=== PATIENT | female | born 1985 | race Caucasian/White ===

== ENCOUNTER 2024-05-08 12:36 | Emergency (ER) | payer MEDICAID, SELFPAY ==
[2024-05-08] VITALS (15 sets, daily range): BP systolic 110–141; BP diastolic 74–95; PULSE 97–116; RESP 18; TEMP 36.6; O2SAT 95–98; BMI 25.8
--- NOTE | 2024-05-08 12:53 | ED.ALCOHOL ---
HPI - Alcohol General Time Seen by Provider: 12:53 Date Seen: 05/08/24 Chief Complaint: Alcohol/Intoxication Stated Complaint: alcohol withdrawal Time Seen by Provider: 05/08/24 12:52 Source: patient and RN notes reviewed Mode of arrival: ambulatory Limitations: no limitations History of Present Illness HPI narrative: This 39-year-old female is brought in the ER for alcohol withdrawal, she was brought in by a to people from the [facility]. She is interested in detox, has developed alcohol withdrawal seizures. She was reportedly recently hospitalized within the last 2 weeks at [place] [id number] in [place] for withdrawal, does not believe she had seizures there but does not remember much. She has had seizures on her own when she has tried to detox from alcohol at home. Yesterday she had abdominal pain, vomiting of bilious material, started drinking again and improved. She states her withdrawal usually starts by 2-3 p.m. in the afternoon. She states she drank a lot last night, did have a shot of whiskey this morning. There reportedly is a plan in action for going to treatment after she has completed her alcohol withdrawal process. She is also use meth, no IV source of drug use ever per patient report. She notes she is living out of her car right now. She is tearful, remorseful. She does feel agitated and is starting to feel a little tremulous at this time. No nausea or abdominal pain at this time. MD complaint: alcohol withdrawal, alcohol dependence and desires rehab Chronic alcohol use: Yes Related Data Home Medications ?Medication ?Instructions ?Recorded ?Confirmed No Known Home Medications 05/08/24 05/08/24 Allergies Allergy/AdvReac Type Severity Reaction Status Date / Time No Known Drug Allergies Allergy Verified 05/08/24 12:48 Review of Systems Status of ROS Reports: 6 or more systems reviewed and unremarkable except as noted in History and below PFSH PFS Social History Smoking Status: Current some day smoker Do you use any of these nicotine containing products: None How often do you have a drink containing alcohol: never How often do you have six or more drinks on one occasion: Never AUDIT-C Alcohol total score: 0 Non-prescribed substance use: amphetamines/methamphetamines Exam Const: Vital Signs, click to edit/add: Vital Signs - 24 hr 05/08/24 12:40 05/08/24 13:01 05/08/24 13:16 Temperature 97.8 F Pulse Rate 102 H Pulse Rate [Right Pulse Oximeter] 116 H Respiratory Rate 18 Blood Pressure Blood Pressure [Ri ght Upper Arm] 141/95 H Pulse Oximetry 96 96 95 Oxygen Delivery Me thod Room Air 05/08/24 13:30 05/08/24 13:31 Temperature Pulse Rate 100 98 Pulse Rate [Right Pulse Oximeter] Respiratory Rate Blood Pressure 129/78 Blood Pressure [Ri ght Upper Arm] Pulse Oximetry 97 97 Oxygen Delivery Me thod Patient is overall alert, interactive, no apparent distress. Did become a little tearful at 1 point. Pupils are equal round, sclera clear, extraocular muscles intact. Symmetrical facial function. Or mucosa dry. Neck is supple, no masses, no adenopathy. CV slightly fast but regular, no murmur, normal S1-S2. Lungs are clear, good air entry, no wheezing or crackles. Abdomen is soft, nontender, nondistended, no organomegaly or masses. She has little mild tremor with intention in her hands. Otherwise strength is 5/5 symmetric, patient is ambulatory into the ED of her own accord. There is bruising in a small puncture site in her left upper forearm, bruising looks like it is healing in patient states that this was the site of the IV when she was in the hospital. Documenting provider has reviewed patient's vital signs: yes Course Course ED Course: Patient is agreeable to going to detox if she would be excepted. In the meantime, will start IV fluids, IV dose of 1 mg IV Ativan and she is very likely an early withdrawal based on her tachycardia, complaint of anxiety and tremors with the tremors noted to be quite minimal at this time. Will get underlying appropriate labs. Nursing staff is going to see if there is any possible detox facility for her. Otherwise, may have to talk to our hospitalist about watching this patient given her history of seizures. Reevaluation(s) Time of Reevaluation #1: 14:36 Reevaluation #1: [facility] detox has accepted patient. She will transfer with EMS. [facility] had no availability, [facility] had no beds at this time, thus, patient will go to [facility]. Vital Signs Vital signs: Initial Vital Signs Temperature 97.8 F 05/08/24 12:40 Temperature Source Temporal Artery Scan 05/08/24 12:40 Pulse Rate 116 H 05/08/24 12:40 Pulse Rhythm Regular 05/08/24 12:40 Respiratory Rate 18 05/08/24 12:40 Blood Pressure 141/95 H 05/08/24 12:40 Blood Pressure Mean 110 H 05/08/24 12:40 Pulse Oximetry 96 05/08/24 12:40 Oxygen Delivery Method Room Air 05/08/24 12:40 Vital Signs Temperature 97.8 F 05/08/24 12:40 Pulse Rate 116 H 05/08/24 12:40 Respiratory Rate 18 05/08/24 12:40 Blood Pressure 141/95 H 05/08/24 12:40 Pulse Oximetry 96 05/08/24 12:40 Oxygen Delivery Method Room Air 05/08/24 12:40 Temperature 97.8 F 05/08/24 12:40 Pulse Rate 99 05/08/24 14:45 Respiratory Rate 18 05/08/24 12:40 Blood Pressure 112/74 05/08/24 15:01 Pulse Oximetry 97 05/08/24 14:45 Oxygen Delivery Method Room Air 05/08/24 12:40 Medications Administered Medications: Discontinued Medications Generic Name Dose Route Start Last Admin Trade Name Freq PRN Reason Stop Dose Admin Sodium Chloride 1,000 mls @ 500 mls/hr 05/08/24 13:02 05/08/24 13:22 0.9 % Sodium Chloride 1000 Ml IV 05/08/24 15:01 500 mls/hr .Q2H CT Administration Lorazepam 1 - 2 mg 05/08/24 13:01 05/08/24 14:37 Lorazepam 2 Mg/Ml Inj IVP 1 mg Q1H PRN Administration Alcohol Withdrawal MDM - Alcohol Lab Data Attestation: I reviewed the patient's lab results. Labs: Lab Results 05/08/24 05/08/24 Range/Units 13:10 13:30 WBC 3.60 L (4.50-11.00) K/uL RBC 3.99 L (4.00-5.20) m/uL Hgb 13.2 (12.0-16.0) gm/dL Hct 38.8 (33.0-51.0) % MCV 97 (80-100) fL MCH 33 (26-34) pg MCHC 34 (32-36) gm/dL RDW Coeff of Jamie 14.5 (11.5-15.5) % Plt Count 195 (140-440) K/uL Neut % (Auto) 61.1 (42.0-72.0) % Lymph % (Auto) 32.8 (20-44) % [place] % (Auto) 4.7 (0.0-11.0) % Eos % (Auto) 0.6 (0.0-7.0) % Baso % (Auto) 0.8 (0.0-3.0) % Neut # (Auto) 2.20 (1.7-7.0) K/uL Lymph # (Auto) 1.20 (0.90-2.90) K/uL [place] # (Auto) 0.20 (0.00-0.90) K/UL Eos # (Auto) 0.00 (0.00-0.50) K/uL Baso # (Auto) 0.00 (0.00-0.30) K/uL Abs Immat Gran (auto) 0.00 (0.00-0.30) K/uL Imm/Tot Granulo (auto) 0.0 % Sodium 140 (135-149) mmol/L Potassium 3.8 (3.6-5.1) mmol/L Chloride 107 (96-114) mmol/L Carbon Dioxide 24 (20-32) mmol/L Anion Gap 9 (7-15) mEq/L BUN 11 (5-24) mg/dL Creatinine 0.6 (0.5-1.5) mg/dL Estimated Creat Clear 112.15 Estimated GFR 116 ml/min Glucose 82 (60-115) mg/dL Lactate 1.9 (0.5-1.9) mmol/L Calcium 8.6 (8.4-10.6) mg/dL Total Bilirubin 0.8 (0.1-1.5) mg/dL AST 37 H (12-35) U/L ALT 18 (4-35) U/L Alkaline Phosphatase 73 (40-150) U/L Total Protein 7.5 (6.0-8.3) g/dL Albumin 4.8 (3.3-5.0) g/dL Lipase 30 (23-300) U/L HCG, Qual Negative (Negative) Urine Opiates Screen Negative (Negative) Ur Oxycodone Screen Negative (Negative) Urine Methadone Screen Negative (Negative) Ur Barbiturates Screen Negative (Negative) U Tricyclic Antidepress Negative (Negative) Ur Phencyclidine Scrn Negative (Negative) Ur Amphetamines Screen POSITIVE A (Negative) U Methamphetamines Scrn POSITIVE A (Negative) U Benzodiazepines Scrn POSITIVE A (Negative) Urine Cocaine Screen Negative (Negative) U Marijuana (THC) Screen Negative (Negative) Ur Drug Screen Comment See Note Ethyl Alcohol 0.13 H (0.01-0.03) % Discharge Plan Discharge Clinical Impression: Alcohol withdrawal syndrome Qualifiers: Complication of substance-induced condition: uncomplicated Qualified Code(s): F10.930 - Alcohol use, unspecified with withdrawal, uncomplicated Patient Disposition: Xfer Other Condition: Stable Prescriptions: No Action No Known Home Medications Stand Alone Forms: [place] Info Instructions
[2024-05-08 13:18] LABS: Lactate* 1.9 mmol/L (0.5-1.9)
[2024-05-08 13:19] LABS: Basophils Percent Auto 0.8 % (0.0-3.0); Eosinophils Percent Auto 0.6 % (0.0-7.0); Hematocrit 38.8 % (33.0-51.0); Hemoglobin* 13.2 gm/dL (12.0-16.0); Lymphocytes Percent Auto 32.8 % (20-44); Mean Corpuscular HGB Conc 34 gm/dL (32-36); Mean Corpuscular Hemoglobin 33 pg (26-34); Mean Corpuscular Volume 97 fL (80-100); Monocytes Percent Auto 4.7 % (0.0-11.0); Neutrophils Percent Auto 61.1 % (42.0-72.0); Platelet Count* 195 K/uL (140-440); RDW Coefficient of Variation % 14.5 % (11.5-15.5); Red Blood Count 3.99 m/uL (4.00-5.20)
[2024-05-08] MEDS: LORazepam 2 MG/ML inj IVP ×2 (13:21→14:37)
[2024-05-08 13:22] LABS: Slide Review Reflex No
[2024-05-08] MEDS: 0.9 % SODIUM CHLORIDE 1000 ml 1,000 ML 500 ML IV (13:22)
[2024-05-08 13:33] LABS: Albumin* 4.8 g/dL (3.3-5.0); Chloride* 107 mmol/L (96-114); Potassium* 3.8 mmol/L (3.6-5.1); Sodium* 140 mmol/L (135-149)
[2024-05-08 13:35] LABS: Bilirubin Total* 0.8 mg/dL (0.1-1.5); Creatinine* 0.6 mg/dL (0.5-1.5); Est. Creatinine Clearance* 112.15; Estimated Glomerular Filt Rate 116 ml/min
[2024-05-08 13:36] LABS: Alanine Aminotransferase* 18 U/L (4-35); Alkaline Phosphatase* 73 U/L (40-150); Anion Gap 9 mEq/L (7-15); Aspartate Amino Transferase* 37 U/L (12-35); Blood Urea Nitrogen* 11 mg/dL (5-24); Calcium* 8.6 mg/dL (8.4-10.6); Carbon Dioxide* 24 mmol/L (20-32); Glucose* 82 mg/dL (60-115); Lipase* 30 U/L (23-300); Total Protein* 7.5 g/dL (6.0-8.3)
[2024-05-08 13:37] LABS: Ethanol* 0.13 % (0.01-0.03); HCG Qualitative Serum* Negative (Negative)
[2024-05-08 13:45] LABS: Amphetamine Screen Urine POSITIVE (Negative); Barbiturate Screen Urine Negative (Negative); Benzodiazepines Screen Urine POSITIVE (Negative); Cannabinoid Screen Urine Negative (Negative); Cocaine Screen Urine Negative (Negative); Methadone Screen Urine Negative (Negative); Methamphetamines Screen Urine POSITIVE (Negative); Opiate Screen Urine Negative (Negative); Oxycodone Screen Urine Negative (Negative); Phencyclidine Screen Urine Negative (Negative); Tricyclic Antidepressant Urine Negative (Negative)
--- NOTE | 2024-05-08 14:41 | ED.NURSE ---
Pt is calm and cooperative at this time.
== END 2024-05-08 15:11 | disposition other institution (70) ==
PROVIDERS: Emergency Provider Family Medicine
DX: F10.239 Alcohol dependence with withdrawal, unspecified (principal)
CPT/HCPCS: 36415; 80053; 80306; 82077; 83605; 83690; 84703; 85025; 94761; 99284; 99285; J2060; J7030

== ENCOUNTER 2024-05-08 14:45 | Outpatient (CLI) | payer MEDICAID, SELFPAY | END 2024-05-08 14:46 | disposition home or self-care (01) | LOC: AMB 05-21 23:03 | PROVIDERS: Visit Provider Family Medicine | DX: F10.939 Alcohol use, unspecified with withdrawal, unspecified (principal) | CPT/HCPCS: A0425; A0427 ==